=== PATIENT | female | born 1970 | race Two or more races ===

== ENCOUNTER → 2024-04-25 | Emergency (ER) | payer OTHER ==
[~2024-04-25] VITALS: Ht 162.6 cm; Wt 68.0 kg
[~2024-04-25] MED LIST: ASPIRIN 300 MG SUPP.RECT RECTAL ONE; ASPIRIN 325 MG TABLET PO ONE; CEFTRIAXONE SODIUM 2,000 MG VIAL IV ONE; CEFTRIAXONE SODIUM 2,000 MG VIAL ONE; CRESTOR40 MG; HYZAAR 50-12.51 EACH; LANTUS SOL100 UNIT/1; OZEMPIC2 MG/0.75; SYNJARDY 12.5-1 EAC1; TOPROL XL50 M1
[2024-04-25 13:17] LABS: HEMOGLOBIN 15.2 g/dL (12.0-15.00); MEAN CELL VOLUME 79.6 fL (80.00-100.00); MEAN CORPUSCULAR HEMOGLOBIN 26.9 pg (27.00-32.0); MEAN CORPUSCULAR HGB CONC 33.8 g/dl (32.0-36.0); PLATELET COUNT 328 K/uL (150-450); RED BLOOD COUNT 5.65 M/uL (4.00-6.00); RED CELL DISTRIBUTION WIDTH 13.4 % (11.5-14.5)
[2024-04-25 13:38] LABS: INR 1.01; PARTIAL THROMBOPLASTIN TIME 28.1 SECONDS (22.0-34.0)
[2024-04-25 13:44] LABS: ALBUMIN 3.5 gm/dL (3.4-5.0); BILIRUBIN TOTAL 0.44 mg/dL (0.3-1.2); CALCIUM 9.8 mg/dL (8.5-10.1); CREATININE SERUM 0.6 mg/dL (0.55-1.02); GFR 104.98; GLOBULINA 4.1 G/DL (2.4-3.5); POTASSIUM 4.35 mEq/L (3.5-5.1); TOTAL PROTEIN 7.6 gm/dL (6.4-8.2)
[2024-04-25 14:29] LABS: URINE APPEARANCE Cloudy; URINE BILIRRUBIN Negative (NEGATIVE); URINE BLOOD Trace; URINE COLOR Yellow; URINE KETONE Negative (NEGATIVE); URINE LEUKOCYTE Trace; URINE NITRATE Positive; URINE PROTEIN 30 (NEGATIVE); URINE UROBILINOGEN 0.2 E.U./dl
[2024-04-25 14:34] LABS: URINE CAST 1.98 uL (0.0-1.40); URINE EPITHELIAL CELLS 58.5 uL (0.0-38.8); URINE WBC 48.2 uL (0.0-23.2)
[2024-04-25 14:37] LABS: URINE GLUCOSE >=1000 MG/DL (NEGATIVE)
== END | disposition home or self-care (01) ==
LOC: ER 12:21
PROVIDERS: General Practice
DX: I63.89 Other cerebral infarction (principal); E11.9 Type 2 diabetes mellitus without complications; Z79.4 Long term (current) use of insulin; I10 Essential (primary) hypertension
CPT/HCPCS: 70551